=== PATIENT | female | born 1990 | race Caucasian/White ===

== ENCOUNTER 2017-01-01 03:22 | Emergency (ER) | payer BC ==
[~2017-01-01] VITALS: Ht 167.6 cm; Wt 61.2 kg
[2017-01-01 03:30] VITALS: BP 129/96; PULSE 100; RESP 20; TEMP 98.5; O2SAT 100
[2017-01-01] MEDS ORDERED: DIPH-TET-PERTUS Vaccine 0.5 ML VIAL (ADACEL) I.M. ONE (04:15)
[2017-01-01 05:02] VITALS: BP 123/76; PULSE 89; RESP 20; TEMP 98.5; O2SAT 100
== END 2017-01-01 05:02 | disposition home or self-care (01) ==
LOC: SED 03:22
DX: S02.2XXB Fracture of nasal bones, initial encounter for open fracture (principal); Z88.0 Allergy status to penicillin; Y04.2XXA Assault by strike against or bumped into by another person, initial encounter; Y93.83 Activity, rough housing and horseplay; Y92.098 Other place in other non-institutional residence as the place of occurrence of the external cause; Y99.8 Other external cause status
CPT/HCPCS: 70160; 81025; 90471; 90715; 99284; J7030